=== PATIENT | female | born 1980 | race Caucasian/White ===

== ENCOUNTER 2020-02-19 06:41 | Emergency (ER) | payer MEDICAID, SELFPAY ==
[2020-02-19] VITALS (13 sets, daily range): BP systolic 154–175; BP diastolic 101–112; PULSE 92–109; RESP 14–40; TEMP 36.7; O2SAT 94–99
--- NOTE | ~2020-02-19 | XR_ITS ---
EXAMINATION: XR shoulder LT min 2V EXAM DATE: 02/19/2020 07:42 INDICATION: No known recent injury provided at this time. Pain of the left shoulder. TECHNIQUE: The following left shoulder projections obtained: frontal projection with internal rotatio n, frontal projection with external rotation, Grashey, and axillary (4+ views). There is no prior st udy for comparison. FINDINGS: No evidence of left shoulder rotator cuff calcific tendinosis. Unremarkable left glenoh umeral and acromioclavicular joints. There are no acute fractures or dislocations identified. There is no subcutaneous gas. The soft tissue is unremarkable. There are no radiopaque foreign bodies. IMPRESSION: 1. Unremarkable XR shoulder LT min 2V exam. Reviewed, dictated and finalized at location B.
--- NOTE | ~2020-02-19 | XR_ITS ---
EXAMINATION: XR chest 2V EXAM DATE: 02/19/2020 07:42 INDICATION: Cough. TECHNIQUE: Frontal and lateral projections of the chest obtained and reviewed. There is no prior elana dy for comparison. FINDINGS: The lungs are clear. There are no pleural effusions. The cardiomediastinal silhouette is within normal limits. There is no pneumothorax suspected. There may be old left 5th, 6th rib fractu res anteriorly. IMPRESSION: No acute cardiopulmonary findings. Reviewed, dictated and finalized at location B.
--- NOTE | 2020-02-19 06:54 | ECG_ITS ---
Measurements Intervals [place] Rate: 96 P: 263 MT: 162 QRS: -19 QRSD: 131 T: -19 QT: 381 QTc: 482 Interpretive Statements SINUS RHYTHM RIGHT BUNDLE BRANCH BLOCK BASELINE ARTIFACT- I, II, III, AVR, AVL, AVF, V3-V4 ABNORMAL ECG Electronically Signed On 02-19-2020 8:09:45 CDT by Ebenezer Sofia D.O.
--- NOTE | 2020-02-19 06:59 | ED.NEUROSD ---
HPI - Neuro Symptoms/Deficit General Chief Complaint: Neuro Symptoms/Deficit Stated Complaint: back pain Time Seen by Provider: 02/19/20 06:58 Source: patient Mode of arrival: ambulatory Limitations: no limitations History of Present Illness HPI Narrative: Patient is a 39-year-old female who presents for evaluation of several complaints including left-sided shoulder pain with tingling in her left fingers, worsening productive cough over the past 6 weeks. Patient reports that she recently moved here from [place] and has yet to follow with a primary care physician. She started noticing some pain with movement in the left shoulder with radiation of the pain into her left arm and tingling in her left fingers. Patient states she can still detect temperature, no difficulty with box toe cementer strength. No numbness in her right upper extremity or lower extremities. No difficulty with movement. Patient states she has pain when she lifts anything. Patient also reporting productive cough over the past 6 weeks. She denies fever or chills. No nausea or vomiting. She denies any chest pain or current shortness of breath. Patient is daily drinker, 5-6 alcoholic beverages per day as well as daily smoker. She has not followed closely with a primary care physician. Related Data Allergies Allergy/AdvReac Type Severity Reaction Status Date / Time iohexol Allergy Unknown Verified 02/19/20 06:50 [From contrast - CT, X-RAY] Review of Systems Review of Systems: Narrative: CONSTITUTIONAL: Denies fever, chills, or sweats. EYES: Denies visual changes ENT: Denies rhinorrhea, congestion, sore throat, or otalgia. CARDIOVASCULAR: Denies chest pain or edema. RESPIRATORY: Reports productive cough without shortness of breath GASTROINTESTINAL: Denies abdominal pain, nausea, vomiting, or diarrhea. GENITOURINARY: Denies dysuria or hematuria. SKIN: Denies rash or itching. MUSCULOSKELETAL: Reports chronic upper back pain, reports left shoulder pain NEUROLOGIC: Denies headache, reports tingling in her left fingers PMFSH Past Medical History Medical History (Updated 02/19/20 @ 07:19 by Lizz Khan MD) No pertinent past medical history Social History Social History (Updated 02/19/20 @ 07:17 by Lizz Khan MD) Smoking status: Current every day smoker Tobacco type: cigarettes Alcohol intake: current Substance use: current Living arrangements: with family Gender identity (if verbalized by the patient): Female Exam Narrative: Exam Narrative: GENERAL: Awake, alert, conversant HEAD: Normocephalic, atraumatic. EYES: PERRLA and EOMI. ENT: Nares clear, no rhinorrhea or epistaxis. Mucous membranes moist. NECK: Supple. CHEST: No respiratory distress, breathing even and non labored, mild expiratory wheezing bilaterally HEART: Regular rate, sinus rhythm ABDOMEN:Non distended, non tender EXTREMITIES: Normal range of motion. There is pain with abduction of the left shoulder, arm extension. Intact sensation median, ulnar, radial nerve distribution. 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 Radial pulse 2+. Intact sensation over the deltoid. Tenderness along the border of the mid scapula which exactly reproduces pain. SKIN: Warm, dry, no rash. NEURO:No focal deficits. Alert and oriented x3. Finger to nose intact bilaterally. EOMs intact without nystagmus. No facial droop/asymmetry noted bilaterally. Grimace intact. Intact sensation in face. Hearing intact bilaterally. Shoulder shrug intact. Strength 5/5 bilateral upper extremities. Strength 5/5 bilateral lower extremities. Reflexes 2+ patellar. Heel to blake intact bilaterally. Ambulatory exam deferred. Course Vital Signs Vital signs: Vital Signs Temperature 36.7 C 02/19/20 06:46 Pulse Rate 100 02/19/20 06:46 Respiratory Rate 18 02/19/20 06:46 Blood Pressure 175/103 H 02/19/20 06:46 Pulse Oximetry 98 02/19/20 06:46 Temperature 36.7 C 02/19/20 06:46 Pulse Rate 100 02/19/20 06:46
[2020-02-19 08:09] LABS: Basophils Absolute Auto 0.1 K/mm3 (0.0-0.1); Basophils Percent Auto 1.5 % (0.2-1.2); Eosinophils Absolute Auto 0.1 K/mm3 (0-0.3); Eosinophils Percent Auto 2.4 % (0-4.4); Hematocrit 39.7 % (37.0-47.0); Hemoglobin 13.7 g/dL (12.0-15.0); Immature Granulocyte Absolute 0.01 K/mm3 (0.00-0.031); Immature Granulocyte Percent A 0.2 % (0-0.5); Immature Platelet Fraction Pct 2.8 % (0.9-11.2); Lymphocytes Absolute Auto 1.29 K/mm3 (0.9-3.2); Lymphocytes Percent Auto 23.8 % (18.3-44.2); Mean Corpuscular HGB Conc 34.5 g/dl (32-36); Mean Corpuscular Hemoglobin 30.6 pg (26-34); Mean Corpuscular Volume 88.6 fl (80-100); Mean Platelet Volume 9.8 fl (7.4-10.4); Monocytes Absolute Auto 0.6 K/mm3 (0.1-0.6); Monocytes Percent Auto 11.8 % (2.6-8.5); Neutrophils Absolute Auto 3.3 K/mm3 (1.3-6.7); Neutrophils Percent Auto 60.3 % (45.5-73.1); Platelet Count Result 124 k/mm3 (150-375); Red Blood Count 4.48 M/mm3 (4.2-5.4); Red Cell Distribution Width 17.2 % (11.5-14.5); White Blood Count 5.4 K/mm3 (4.5-10.0)
[2020-02-19 08:19] LABS: Anion Gap 15 mmol/L (8-16); Blood Urea Nitrogen 4 mg/dL (7-17); Calcium 9.7 mg/dL (8.4-10.2); Carbon Dioxide 22 mmol/L (22-30); Chloride 101 mmol/L (98-107); Estimated Glomerular Filt Rate > 60; Glucose 82 mg/dL (65-105); Potassium 4.2 mmol/L (3.4-5.0); Sodium 138 mmol/L (137-145)
== END 2020-02-19 09:58 | disposition home or self-care (01) ==
PROVIDERS: Emergency Provider Emergency Medicine
DX: M25.512 Pain in left shoulder (principal); J40 Bronchitis, not specified as acute or chronic; F17.210 Nicotine dependence, cigarettes, uncomplicated; R94.31 Abnormal electrocardiogram [ECG] [EKG]
CPT/HCPCS: 36415; 71046; 73030; 80048; 85025; 85055; 93005; 99284